=== PATIENT | female | born 1975 | race American Indian/Alaskan Native ===

== ENCOUNTER 2017-07-08 08:23 | Emergency (ER) | payer SELFPAY ==
[2017-07-08] MEDS ORDERED: NACL 0.9% 1000 ML 1,000 ML IV ONE (11:38)
[2017-07-08] MEDS ORDERED: ZOFRAN IV ONE (11:38)
--- NOTE | 2017-07-08 11:39 | Emergency Department Report ---
HPI - General Chief Complaint: Upper Respiratory Infection Time Seen by Provider: 07/08/17 11:27 - HPI HPI: Patient here for that she is having flulike symptoms for 2 days. Patient is on her knees crying report and body ache all over and that she was exposed to the flu from work. She states she has fever and chills and body ache 8 out of 10. She also reports that she is coughing and and having chest pain with cough and. Denies any abdominal pain. Denies any urinary burning frequency or urgency. Denies any neck pain or stiffness. Cough, congestion, runny nose body aches and fever and chills. She states that she took [id number] cough and cold but it's not helping. Patient reports that she has some nausea but no vomiting. ED Past Medical Hx - Past Medical History Previous Medical History?: Yes Additional medical history: Uterine fibroids, Vaginal delivery 1988,1990 - Surgical History Past Surgical History?: Yes Additional Surgical History: Ectopic surgery - Family History Family history: hypertension - Social History Smoking Status: Current Some Day Smoker Substance Use Type: Alcohol, Marijuana, Non Opiate Pain, Other - Medications Home Medications: Home Medications Medication Instructions Recorded Confirmed Last Taken Type Cetirizine HCl [ZyrTEC] 10 mg PO QDAY 10 Days #10 capsule 07/08/17 Unknown Rx Ibuprofen [Motrin] 600 mg PO Q6H PRN 3 Days #12 tablet 07/08/17 Unknown Rx Oseltamivir [Tamiflu] 75 mg PO BID 5 Days #10 cap 07/08/17 Unknown Rx Promethazine /Codeine 5 ml PO Q6H PRN #100 ml 07/08/17 Unknown Rx [Phenergan/Codeine 6.25-10 mg/5 ml] ED Review of Systems ROS: Stated complaint: CHEST PAIN W/ COUGHING/RUNNY NOSE Other details as noted in HPI Comment: All other systems reviewed and negative Constitutional: chills, fever, weakness Eyes: denies: eye pain, eye discharge ENT: congestion. denies: throat pain Respiratory: cough. denies: shortness of breath, SOB with exertion, SOB at rest , stridor, wheezing Cardiovascular: chest pain. denies: palpitations, dyspnea on exertion, orthopnea, edema, syncope, paroxysmal nocturnal dyspnea Gastrointestinal: nausea. denies: abdominal pain, vomiting, diarrhea, constipation, hematemesis, melena, hematochezia Genitourinary: denies: dysuria, hematuria Musculoskeletal: myalgia. denies: back pain, joint swelling, arthralgia Skin: denies: rash, lesions, pruritus Neurological: denies: headache, numbness, paresthesias, confusion, abnormal gait , vertigo Physical Exam - Physical Exam Vital Signs: Vital Signs 07/08/17 08:27 Temperature 99.6 F Pulse Rate 108 H Respiratory 20 Rate Blood Pressure 140/79 O2 Sat by Pulse 100 Oximetry Vital Signs 07/08/17 07/08/17 08:27 13:41 Temperature 99.6 F 98.4 F Pulse Rate 108 H 84 Respiratory 20 16 Rate Blood Pressure 140/79 Blood Pressure 115/72 [Right] O2 Sat by Pulse 100 100 Oximetry General: This is a 42-year-old female nontoxic in appearance but appears ill. Physical Exam: Head: Normocephalic atraumatic Ears:BIateral TM congested without erythema and loss of bony landmarks. Jason EAC with normal exam. No mastoid bone tenderness. Mouth: Moist, no pharyngeal erythema or exudate . No tonsillar erythema or exudate. UVULA midline and oral airways patent. No peritonsillar abscess Abdomen:, Nontender the palpation in all quadrants, no guarding or rebound tenderness. No CVA tenderness Neck: Nontender to palpate, supple, normal range of motion. No adenopathy. No c- spine tenderness. Nose: Bilateral nasal mucosa congested with clear drainage. Maxillary and frontal sinuses non-tender to palpate. Eyes: Sclerae and conjunctiva without injection. Bilateral pupils equal and reactive to light. Bilateral lids are normal. Normal accommodation.BEOMI Lungs: Clear to auscultate bilaterally, no rhonchi wheezes or rales. Normal work of breathing and no chest wall tenderness. Dry cough CV: S1, S2. Regular rate and rhythm negative murmur. Capillary refill is less than 3 seconds Skin: Clean dry and intact, no rashes or lesions Psych: Normal mood and behavior ED Course Vital Signs 07/08/17 08:27 Temperature 99.6 F Pulse Rate 108 H Respiratory 20 Rate Blood Pressure 140/79 O2 Sat by Pulse 100 Oximetry Vital Signs 07/08/17 07/08/17 08:27 13:41 Temperature 99.6 F 98.4 F Pulse Rate 108 H 84 Respiratory 20 16 Rate Blood Pressure 140/79 Blood Pressure 115/72 [Right] O2 Sat by Pulse 100 100 Oximetry - Reevaluation(s) Reevaluation #1: 07/08/17 12:10 Patient reports cold and cough symptoms of body ache. She was gardening on IV fluids 1 L, Zofran 8 mg IV, Tylenol Reevaluation #2: 07/08/17 13:43 Reevaluation: Patient received 1 L normal saline IV, she was given additional Toradol 30 mg IV. Patient able to tolerate oral liquids and she is able to eat a sandwich without any nausea or vomiting. She says she feels better. Lab work noted. X-ray negative. ED Medical Decision Making - Lab Data Result diagrams: 07/08/17 12:10 07/08/17 12:10 Lab Results 07/08/17 07/08/17 07/08/17 Range/Units 11:57 12:10 12:10 WBC 7.0 (4.5-11.0) K/mm3 RBC 4.23 (3.65-5.03) M/mm3 Hgb 12.9 (10.1-14.3) gm/dl Hct 39.7 (30.3-42.9) % MCV 94 (79-97) fl MCH 31 (28-32) pg MCHC 33 (30-34) % RDW 14.9 (13.2-15.2) % Plt Count 223 (140-440) K/mm3 Lymph % (Auto) 8.1 L (13.4-35.0) % [place] % (Auto) 11.1 H (0.0-7.3) % Eos % (Auto) 0.5 (0.0-4.3) % Baso % (Auto) 0.6 (0.0-1.8) % Lymph # 0.6 L (1.2-5.4) K/mm3 [place] # 0.8 (0.0-0.8) K/mm3 Eos # 0.0 (0.0-0.4) K/mm3 Baso # 0.0 (0.0-0.1) K/mm3 Seg Neutrophils % 79.7 H (40.0-70.0) % Seg Neutrophils # 5.6 (1.8-7.7) K/mm3 Sodium 137 (137-145) mmol/L Potassium 4.4 (3.6-5.0) mmol/L Chloride 101.7 (98-107) mmol/L Carbon Dioxide 20 L (22-30) mmol/L Anion Gap 20 mmol/L BUN 9 (7-17) mg/dL Creatinine 0.7 (0.7-1.2) mg/dL Estimated GFR > 60 ml/min BUN/Creatinine Ratio 13 % Glucose 100 (65-100) mg/dL Calcium 8.5 (8.4-10.2) mg/dL Total Bilirubin (0.1-1.2) mg/dL Direct Bilirubin (0-0.2) mg/dL Indirect Bilirubin mg/dL AST (5-40) units/L ALT (7-56) units/L Alkaline Phosphatase (35-129) units/L Total Creatine Kinase 241 H (30-135) units/L Troponin T (0.00-0.029) ng/mL Total Protein (6.3-8.2) g/dL Albumin (3.9-5) g/dL Albumin/Globulin Ratio % HCG, Qual (Negative) Urine Color Yellow (Yellow) Urine Turbidity Clear (Clear) Urine pH 6.0 (5.0-7.0) Ur Specific [place] 1.018 (1.003-1.030) Urine Protein <15 mg/dl (Negative) mg/dL Urine Glucose (UA) Neg (Negative) mg/dL Urine Ketones Neg (Negative) mg/dL Urine Blood Neg (Negative) Urine Nitrite Neg (Negative) Urine Bilirubin Neg (Negative) Urine Urobilinogen 2.0 (<2.0) mg/dL Ur Leukocyte Esterase Neg (Negative) Urine WBC (Auto) 1.0 (0.0-6.0) /HPF Urine RBC (Auto) 1.0 (0.0-6.0) /HPF U Epithel Cells (Auto) 2.0 (0-13.0) /HPF Urine Mucus Few /HPF 07/08/17 07/08/17 07/08/17 Range/Units 12:10 12:10 12:10 WBC (4.5-11.0) K/mm3 RBC (3.65-5.03) M/mm3 Hgb (10.1-14.3) gm/dl Hct (30.3-42.9) % MCV (79-97) fl MCH (28-32) pg MCHC (30-34) % RDW (13.2-15.2) % Plt Count (140-440) K/mm3 Lymph % (Auto) (13.4-35.0) % [place] % (Auto) (0.0-7.3) % Eos % (Auto) (0.0-4.3) % Baso % (Auto) (0.0-1.8) % Lymph # (1.2-5.4) K/mm3 [place] # (0.0-0.8) K/mm3 Eos # (0.0-0.4) K/mm3 Baso # (0.0-0.1) K/mm3 Seg Neutrophils % (40.0-70.0) % Seg Neutrophils # (1.8-7.7) K/mm3 Sodium (137-145) mmol/L Potassium (3.6-5.0) mmol/L Chloride (98-107) mmol/L Carbon Dioxide (22-30) mmol/L Anion Gap mmol/L BUN (7-17) mg/dL Creatinine (0.7-1.2) mg/dL Estimated GFR ml/min BUN/Creatinine Ratio % Glucose (65-100) mg/dL Calcium (8.4-10.2) mg/dL Total Bilirubin 0.60 (0.1-1.2) mg/dL Direct Bilirubin < 0.2 (0-0.2) mg/dL Indirect Bilirubin 0.4 mg/dL AST 24 (5-40) units/L ALT 13 (7-56) units/L Alkaline Phosphatase 50 (35-129) units/L Total Creatine Kinase (30-135) units/L Troponin T < 0.010 (0.00-0.029) ng/mL Total Protein 7.0 (6.3-8.2) g/dL Albumin 3.9 (3.9-5) g/dL Albumin/Globulin Ratio 1.3 % HCG, Qual Negative (Negative) Urine Color (Yellow) Urine Turbidity (Clear) Urine pH (5.0-7.0) Ur Specific [place] (1.003-1.030) Urine Protein (Negative) mg/dL Urine Glucose (UA) (Negative) mg/dL Urine Ketones (Negative) mg/dL Urine Blood (Negative) Urine Nitrite (Negative) Urine Bilirubin (Negative) Urine Urobilinogen (<2.0) mg/dL Ur Leukocyte Esterase (Negative) Urine WBC (Auto) (0.0-6.0) /HPF Urine RBC (Auto) (0.0-6.0) /HPF U Epithel Cells (Auto) (0-13.0) /HPF Urine Mucus /HPF Influenza A and B- - EKG Data -: EKG Interpreted by Me (attending physician) EKG shows normal: sinus rhythm (sinus rhythm at 86 bpm) Rate: normal - EKG Data Interpretation: no acute changes, normal EKG - Radiology Data Radiology results: report reviewed Chest x-ray reveals no acute cardiopulmonary findings. - Medical Decision Making ED course: Pt here after reporting that she has been exposed to the fluid now she is having flulike symptoms for the past 2 days. Her main complaint is body ache and chest pain with coughing. Chest x-ray reveals no acute cardio pulmonary findings, influenza A and B-, troponin level , EKG sinus rhythm without any acute ST abnormality. CBC stable, urinalysis is stable and test is negative. Chemistry with mild elevation in CK at 241. I discussed all results with patient. He was given normal saline IV 1 L in the emergency room and Zofran 8 mg IV, Tylenol 975 mg by mouth followed by Toradol 30 mg IV after lab work was resulted. Patient is able to tolerate oral liquids and ate a sandwich. I discussed the patient that she needs to rest for 72 hours , increase her fluid intake and output is on Tamiflu. She does not have a primary care physician so I will refer her to [facility]. Patient discharged home a prescription for codeine with headache and cough medicine, Tamiflu, Motrin and Zyrtec. Discharge from emergency room in stable condition. Critical care attestation.: If time is entered above; I have spent that time in minutes in the direct care of this critically ill patient, excluding procedure time. ED Disposition Clinical Impression: Acute viral syndrome, URI with cough and congestion, Body aches, Fever in adult Disposition: DC-01 TO HOME OR SELFCARE Is pt being admited?: No Does the pt Need Aspirin: No Condition: Stable Instructions: Fever in Adults (ED), Acute Nausea and Vomiting (ED), Viral Syndrome (ED), Musculoskeletal Pain (ED), Acute Cough (ED) Additional Instructions: Please increase her fluid intake to 2-3 L of fluid includes water, oranges and/ or Gatorade daily. Rest your body for 72 hours to allow your immune system to recover. Take medication as prescribed. Please do not drive or operate heavy machinery while taking this medication for cough and nausea as this medication causes drowsiness Follow-up with her primary care physician in 2 days and if you do not have a primary care physician follow-up at [facility] If his symptoms worsen, please return to the emergency room Prescriptions: Cetirizine HCl [ZyrTEC] 10 mg PO QDAY 10 Days #10 capsule Ibuprofen [Motrin] 600 mg PO Q6H PRN 3 Days #12 tablet PRN Reason: FEVER AND PAIN Oseltamivir [Tamiflu] 75 mg PO BID 5 Days #10 cap Promethazine /Codeine [Phenergan/Codeine 6.25-10 mg/5 ml] 5 ml PO Q6H PRN #100 ml PRN Reason: COUGH AND NAUSEA Referrals: PRIMARY CAREMD [Primary Care Provider] - 07/10/17 [facility] [Outside] - 07/10/17 Forms: Accompanied Note, Work/School Release Form(ED)
[2017-07-08] MEDS ORDERED: TYLENOL PO ONE (11:40)
[2017-07-08 12:30] LABS: Basophils % (Auto) 0.6 % (0.0-1.8); Eosinophils % (Auto) 0.5 % (0.0-4.3); Hematocrit 39.7 % (30.3-42.9); Hemoglobin 12.9 gm/dl (10.1-14.3); Lymphocytes # (Auto) 0.6 K/mm3 (1.2-5.4); Lymphocytes % (Auto) 8.1 % (13.4-35.0); Mean Corpuscular HGB Conc 33 % (30-34); Mean Corpuscular Hemoglobin 31 pg (28-32); Mean Corpuscular Volume 94 fl (79-97); Monocytes # (Auto) 0.8 K/mm3 (0.0-0.8); Monocytes % (Auto) 11.1 % (0.0-7.3); Platelet Count 223 K/mm3 (140-440); Red Blood Count 4.23 M/mm3 (3.65-5.03); Red Cell Distribution Width 14.9 % (13.2-15.2)
[2017-07-08 12:36] LABS: Bilirubin,Urine NEG (Negative); Blood,Urine NEG (Negative); Color,Urine Yellow (Yellow); Mucus,Urine FEW /HPF; Nitrite,Urine NEG (Negative); Protein,Urine <15 mg/dL mg/dL (Negative)
[2017-07-08 12:39] LABS: Alanine Aminotransferase 13 units/L (7-56); Albumin 3.9 g/dL (3.9-5)
[2017-07-08 12:42] LABS: Bilirubin,Direct < 0.2 mg/dL (0-0.2)
[2017-07-08 12:44] LABS: BUN/Creatinine Ratio 13; Blood Urea Nitrogen 9 mg/dL (7-17); Calcium 8.5 mg/dL (8.4-10.2); Hemolysis Index 44
--- NOTE | 2017-07-08 13:00 | XRay Report ---
ROUTINE CHEST, TWO VIEWS: HISTORY: Fever, cough, chest pain. The trachea, heart, mediastinal contour, lung stone and bony thorax are unremarkable. IMPRESSION: Unremarkable chest x-ray.
[2017-07-08] MEDS ORDERED: TORADOL IV ONE (13:02)
[2017-07-08 13:42] VITALS: BP 115/72
== END 2017-07-08 14:05 | disposition home or self-care (01) ==
LOC: ED 08:23
DX: J06.9 Acute upper respiratory infection, unspecified (principal); B34.9 Viral infection, unspecified; F17.200 Nicotine dependence, unspecified, uncomplicated; F12.10 Cannabis abuse, uncomplicated; D25.9 Leiomyoma of uterus, unspecified; Z91.018 Allergy to other foods
CPT/HCPCS: 36415; 71046; 80048; 80074; 81001; 82550; 84484; 84703; 85025; 87400; 93005; 93010; 96361; 96374; 96375; 99284; J1885; J2405; J7030